=== PATIENT | female | born 1945 | race Caucasian/White ===

== ENCOUNTER 2023-01-25 14:42 | Emergency (ER) | payer OTHER ==
[2023-01-25] MEDS ORDERED: KETOROLAC 30 MG/ML INJ ONE (15:41)
[2023-01-25 15:45] LABS: Absolute Lymphocytes (CBC) 1.1 K/uL (0.7-4.9); Hematocrit 35.1 % (36.0-45.0); Lymphocytes % 17.8 % (15.3-44.8); MCV 90.6 fL (80-100); MPV 9.6 fL (7.6-11.3); Platelets 190 thou/uL (152-406); RBC Red Blood Cell Count 3.88 M/uL (3.86-4.86)
[2023-01-25 15:59] LABS: Potassium 3.6 mEq/L (3.5-5.1)
--- NOTE | 2023-01-25 16:16 | RAD REPORT ---
EXAM DESCRIPTION: US - Extremity Venous Uni Ltd - 01/25/2023 4:11 pm CLINICAL HISTORY: SWELLING Leg swelling and edema. COMPARISON: No comparisons FINDINGS: Right lower extremity venous system was interrogated with Doppler technique. Normal flow, compressibility and augmentation was noted. There is no DVT present. IMPRESSION: No evidence of right lower extremity deep venous thrombosis.
--- NOTE | 2023-01-25 16:29 | EDPHYS ---
Physician Documentation [facility] Name: Jovana Astorga Age: 78 yrs Sex: Female : 1945 Arrival Date: 01/25/2023 Time: 14:42 Bed 16 Private MD: ED Physician Daniel Michele HPI: 01/25 15:05 This 78 yrs old Female presents to ER via Unassigned with complaints of Leg ec2 Swelling. 15:05 Patient arrives today due to concern for right sided leg swelling. Patient reports that ec2 for the past 3 days she had some pain in the right leg which progressed to redness in the leg this morning. No fevers or chills, no nausea or vomiting. Patient was seen at another facility where she had lab work done and a CT of the abdomen and pelvis and ultimately told that she has an elevated white blood cell count however did not have the leg swelling until today.. Historical: - Allergies: 15:05 No Known Allergies; cm10 - PMHx: 15:05 Hypertensive disorder; Hypercholesterolemia; breast cancer; RIght; cm10 - Immunization history:: Adult Immunizations unknown. - Social history:: Smoking status: Patient denies any tobacco usage or history of. ROS: 15:05 Constitutional: as per hpi ec2 Exam: 15:05 Constitutional: GEN: NAD Head: atraumatic Eyes: EOMI Ears: External ears are ec2 normal. CV: regular rate, right lower extremity swelling LUNGS: no respiratory distress ABD: non-distended SKIN: Right lower extremity with erythematous anterior tibia and calf along with prominent varicose veins noted, intact distal neurovascular status MSK: no evidence of trauma NEURO: moves all extremities equally Vital Signs: 15:00 Pulse 76; Resp 18; Temp 98.4(TE); Pulse Ox 98% on R/A; Weight 83.46 kg (R); Height 5 cm10 ft. 0 in. (R); Pain 7/10; 15:06 BP 172 / 72; cm10 17:00 BP 186 / 67; Pulse 62; Resp 18; Pulse Ox 96% on R/A; Pain 3/10; nj1 17:00 Pain 3/10; nj1 15:00 Body Mass Index 35.93 (83.46 kg, 152.4 cm) cm10 15:00 Pain Scale: Adult cm10 17:00 Pain Scale: Adult nj1 17:00 Pain Scale: Adult nj1 MDM: 14:49 Patient medically screened. ec2 15:05 ED course: Patient arrives today due to concern for right lower extremity swelling and ec2 pain. Examination remarkable for well-appearing nontoxic individual who has an obviously enlarged right lower extremity with intact distal neurovascular status that has skin that is erythematous and warm. Will obtain lab work, ultrasound study and further assess the patient's complaint. Currently considering DVT, cellulitis, low suspicion for bony fracture.. 16:00 ED course: CBC is reassuring, metabolic profile is reassuring without any electrolyte ec2 or renal abnormalities. Pending ultrasound. . 16:21 ED course: Ultrasound shows no evidence of DVT. We will treat for cellulitis and have ec2 the patient follow-up with a primary care doctor. Patient discharged home, return precautions given.. 16:29 Data reviewed: vital signs. ec2 01/25 15:05 Order name: CBC with Diff; Complete Time: 16:00 ec2 01/25 15:05 Order name: BMP; Complete Time: 16:00 ec2 01/25 15:05 Order name: Extremity Venous Uni Ltd US; Complete Time: 16:21 ec2 Administered Medications: 15:31 Drug: Ketorolac IVP 15 mg IVP once Route: IVP; Site: left antecubital; nj1 17:00 Follow up: Pain 3/10 Adult; Response: No adverse reaction; Pain is decreased nj1 16:40 Drug: Clindamycin PO 450 mg PO once Route: PO; nj1 17:00 Follow up: Response: No adverse reaction nj1 Disposition Summary: 01/25/23 16:28 Discharge Ordered Notes: Location: Home ec2 Condition: Stable ec2 Diagnosis - Cellulitis of right lower limb ec2 Discharge Instructions: - Discharge Summary Sheet ec2 - Cellulitis, Adult, [id number] ec2 Forms: - Medication Reconciliation Form ec2 - Thank You Letter ec2 - Antibiotic Education ec2 - Prescription Opioid Use ec2 - Patient Portal Instructions ec2 - Leadership Thank You Letter ec2 Prescriptions: - Clindamycin HCl 150 mg Oral capsule - take 3 capsule ORAL route every 8 hours for 7 days; 56 capsule; Refills: 0, ec2 Product Selection Permitted Signatures: Dispatcher [employer] EDMS Karlene Figueroa RN RN nj1 Jinny Pearson, RN RN cm10 Daniel Michele MD MD ec2
--- NOTE | 2023-01-25 16:29 | ER ---
Nurse's Notes [facility] Name: Jovana Astorga Age: 78 yrs Sex: Female : 1945 Arrival Date: 01/25/2023 Time: 14:42 Bed 16 Private MD: Diagnosis: Cellulitis of right lower limb Presentation: 01/25 15:00 Chief complaint: Patient states: right lower leg swelling onset last night. Pt has cm10 noted redness and swelling to right lower leg. Coronavirus screen: Vaccine status: Patient reports receiving the 2nd dose of the covid vaccine. Client denies travel out of the [place] in the last 14 days. Ebola Screen: Patient denies travel to an Ebola-affected area in the 21 days before illness onset. No symptoms or risks identified at this time. Initial Sepsis Screen: Does the patient meet any 2 criteria? No. Patient's initial sepsis screen is negative. Does the patient have a suspected source of infection? No. Patient's initial sepsis screen is negative. Risk Assessment: Do you want to hurt yourself or someone else? Patient reports no desire to harm self or others. Onset of symptoms was January 25, 2023. 15:00 Method Of Arrival: Ambulatory cm10 15:00 Acuity: VIDAL 3 cm10 Historical: - Allergies: 15:05 No Known Allergies; cm10 - PMHx: 15:05 Hypertensive disorder; Hypercholesterolemia; breast cancer; RIght; cm10 - Immunization history:: Adult Immunizations unknown. - Social history:: Smoking status: Patient denies any tobacco usage or history of. Screenin:38 [facility] ED Fall Risk Assessment (Adult) Score/Fall Risk Level 0 - 2 = Low Risk nj1 Oriented to surroundings, Maintained a safe environment, Hourly rounding (assess needs \T\ fall precautionary measures) done. Abuse screen: Denies threats or abuse. Denies injuries from another. Nutritional screening: No deficits noted. Tuberculosis screening: No symptoms or risk factors identified. Assessment: 15:15 General: Appears in no apparent distress. comfortable, Behavior is calm, cooperative, nj1 appropriate for age. Pain: Complains of pain in right lower leg Pain currently is 7 out of 10 on a pain scale. 15:15 Neuro: Level of Consciousness is awake, alert, obeys commands, Oriented to person, nj1 place, time, situation. Cardiovascular: Patient's skin is warm and dry. Respiratory: Airway is patent Respiratory effort is even, unlabored. Derm: Redness noted to right lower extremity. 17:00 Reassessment: Patient appears in no apparent distress at this time. Patient and/or nj1 family updated on plan of care and expected duration. Pain level reassessed. Patient is alert, oriented x 3, equal unlabored respirations, skin warm/dry/pink. Patient states feeling better. 17:00 Reassessment: Pt has not taken her bp medication, she is to take it as soon as she gets nj1 home, ok by Dr Michele. Vital Signs: 15:00 Pulse 76; Resp 18; Temp 98.4(TE); Pulse Ox 98% on R/A; Weight 83.46 kg (R); Height 5 cm10 ft. 0 in. (R); Pain 7/10; 15:06 BP 172 / 72; cm10 17:00 BP 186 / 67; Pulse 62; Resp 18; Pulse Ox 96% on R/A; Pain 3/10; nj1 17:00 Pain 3/10; nj1 15:00 Body Mass Index 35.93 (83.46 kg, 152.4 cm) cm10 15:00 Pain Scale: Adult cm10 17:00 Pain Scale: Adult nj1 17:00 Pain Scale: Adult nj1 ED Course: 14:47 Patient arrived in ED. mr 14:49 Daniel Michele MD is Attending Physician. ec2 15:05 Triage completed. cm10 15:05 Arm band placed on Patient placed in an exam room, on a stretcher. cm10 15:11 Karlene Figueroa, GABRIELLA is Primary Nurse. nj1 15:25 Inserted saline lock: 22 gauge in left antecubital area, using aseptic technique. Blood nj1 collected. 15:38 Patient has correct armband on for positive identification. Bed in low position. Call nj1 light in reach. Adult w/ patient. Provided Education on: call light, fall precautions. 16:13 Extremity Venous Uni Ltd US In Process Unspecified. EDMS 17:00 No provider procedures requiring assistance completed. IV discontinued, intact, nj1 bleeding controlled. Administered Medications: 15:31 Drug: Ketorolac IVP 15 mg IVP once Route: IVP; Site: left antecubital; nj1 17:00 Follow up: Pain 3/10 Adult; Response: No adverse reaction; Pain is decreased nj1 16:40 Drug: Clindamycin PO 450 mg PO once Route: PO; nj1 17:00 Follow up: Response: No adverse reaction nj1 Medication: 15:39 VIS not applicable for this client. nj1 Outcome: 16:28 Discharge ordered by . ec2 17:00 Discharged to home ambulatory, with family, nj1 17:00 Condition: stable 17:00 Discharge instructions given to patient, Instructed on discharge instructions, follow up and referral plans. medication usage, Demonstrated understanding of instructions, follow-up care, medications, Prescriptions given X 1, 17:14 Patient left the ED. nj1 Signatures: Dispatcher [employer] EDLea Erickson, Reg Rajendra mr Karlene Figueroa RN RN nj1 Jinny Pearson RN RN cm10 Daniel Michele MD MD ec2 Corrections: (The following items were deleted from the chart) 17:13 17:10 BP 186 / 67; Pulse 62bpm; Resp 18bpm; Pulse Ox 96% RA; Pain 3/10, Adult; nj1 nj1
[2023-01-26 16:01] VITALS: BP 186/67; TEMP 98.4; O2SAT 96
== END 2023-01-25 17:14 | disposition home or self-care (01) ==
LOC: ER 14:42
DX: L03.115 Cellulitis of right lower limb (principal); M79.89 Other specified soft tissue disorders; I10 Essential (primary) hypertension; E78.00 Pure hypercholesterolemia, unspecified
CPT/HCPCS: 36415; 80048; 85025; 93971; 96374; 99284